=== PATIENT | male | born 1960 | race Caucasian/White ===

== ENCOUNTER 2017-05-24 05:27 | Inpatient (IN) | payer OTHER ==
[2017-05-11 17:11] VITALS: BMI 26.7
--- NOTE | 2017-05-24 11:47 | HP ---
History & Physical Update - History History: No Change - Physical Physical: No Change - Assessment Assessment: No Change - Plan Plan: No Change
[2017-05-24] MEDS ORDERED: MIDAZOLAM HCL 2 MG/2 ML SINGLE DOSE VIAL ONE (12:04)
[2017-05-24] MEDS ORDERED: PROPOFOL 20 ML ONE ×14 (12:05→15:45)
[2017-05-24] MEDS ORDERED: ROCURONIUM BROMIDE 50 MG/5 ML VIAL ONE (12:06)
[2017-05-24] MEDS ORDERED: SUCCINYLCHOLINE CHLORIDE 200 MG/10 ML VIAL ONE (12:06)
[2017-05-24] MEDS ORDERED: ceFAZolin SODIUM 1 GM VIAL IVPB ONE (12:31)
[2017-05-24] MEDS ORDERED: ONDANSETRON 4 MG/2 ML VIAL ONE (12:51)
[2017-05-24] MEDS ORDERED: ceFAZolin SODIUM 1 GM VIAL ONE ×2 (12:51→21:39)
[2017-05-24] MEDS ORDERED: DEXAMETHASONE SOD PHOSPHATE 4 MG/1 ML VIAL ONE (12:51)
[2017-05-24] MEDS ORDERED: THROMBIN (BOVINE) 5,000 UNIT VIAL TP ONE (13:34)
[2017-05-24] MEDS ORDERED: BACITRACIN 50,000 UNITS VIAL NR ONE (13:34)
[2017-05-24] MEDS ORDERED: PROMETHAZINE HCL 25 MG/1 ML VIAL IVPB PRN (14:46)
[2017-05-24] MEDS ORDERED: DEXAMETHASONE SOD PHOSPHATE 4 MG/1 ML VIAL IVPUSH PRN (14:46)
[2017-05-24] MEDS ORDERED: ONDANSETRON 4 MG/2 ML VIAL IVPUSH PRN ×2 (14:46)
[2017-05-24] MEDS ORDERED: PROMETHAZINE HCL 25 MG/1 ML VIAL IVPUSH PRN (14:46)
[2017-05-24] MEDS ORDERED: HYDROmorphone *PCA* 10MG/50ML DISP.SYRIN PCA SCH (15:00)
[2017-05-24] MEDS ORDERED: METOPROLOL TARTRATE 5 MG/5 ML VIAL ONE (15:54)
[2017-05-24] MEDS ORDERED: D5-1/2NS+20 MEQ KCL - 1,000 ML IV SCH (16:00)
--- NOTE | 2017-05-24 16:00 | OP ---
Operative Note - Note: Operative Date: 05/24/17 Pre-Operative Diagnosis: C5-6 and C6-7 HNP with R > L radiculopathy Operation: Traction tongs; anterior cervical discectomies C5-6 and C6-7; partial corpectomies C5,6,7 for decompression; anterior interbody fusion C5-6 and C6-7; interbody implants C5-6 and C6-7; anterior instrumentation C5-6-7 ; microdissection Findings: Severe DDD C6-7 and moderate DDD C5-6 with bridging osteophytes and uncovertebral joint hypertrophy and foramenal stenosis; sensitive B C6 and C67 roots; central stenosis; stable SSEP and MEP; occ EMG activities Implants: 7 mm Bajadero lordotic implants (C5-6 and C6-7); 42 mm [employer] Select plate and 16 mm screws Surgeon: Kenneth Christiansen Electrical And Instrument Technician: Brannon Owens Anesthesiologist/COAL TRAM DRIVER: Katia Shaw MD Anesthesia: General Specimens Removed: C5-6 and C6-7 DDD Estimated Blood Loss (mls): 25
[2017-05-24] MEDS ORDERED: BACITRACIN 15 GM TUBE TOPICAL OINTMENT ONE (16:17)
--- NOTE | 2017-05-24 16:20 | PN ---
Progress Note (short form) - Note Progress Note: NEUROSURGERY Pt in PACU AF, VSS O2 sat 100% PE: CV- RRR; Lungs: CTA; Abd-benign; Ext- no sign of DVT CN- intact; Motor 4/5 B UE/LE at least; Sensation- intact to LT Dressing C/D/I Intra-op findings d/w family All questions answered
[2017-05-24] MEDS ORDERED: HYDROmorphone *PCA* 10MG/50ML DISP.SYRIN PCA ONE (16:25)
[2017-05-24] MEDS: diazePAM 5 MG TABLET PO SCH (18:39)
[2017-05-24] MEDS: CEFAZOLIN 1 GM in DEXTROSE 5%-WATER - 50 ML IVPB SCH (20:30)
[2017-05-24] MEDS ORDERED: DEXTROSE 5%-WATER - 50 ML IVPB ONE (21:39)
[2017-05-24] MEDS: DOCUSATE SODIUM 100 MG CAPSULE (FP) PO SCH (21:53)
[2017-05-25] MEDS: diazePAM 5 MG TABLET PO SCH ×4 (01:00→21:43)
[2017-05-25] MEDS: CEFAZOLIN 1 GM in DEXTROSE 5%-WATER - 50 ML IVPB SCH (01:14)
[2017-05-25] MEDS: DOCUSATE SODIUM 100 MG CAPSULE (FP) PO SCH ×3 (06:25→21:42)
--- NOTE | 2017-05-25 08:06 | PN ---
Progress Note (short form) - Note Progress Note: NEUROSURGERY POD #1 Mild incisional pain Mild sore throat R deltoid area pain better AF, VSS PE: CV- RRR; Lungs: CTA; Abd-benign; Ext- no sign of DVT CN- intact; Motor 4+/5 B UE/LE at least; Sensation- intact to LT Dressing C/D/I- changed C spine x-rays today OOB/PT Adv diet Intra-op findings d/w pt All questions answered
[2017-05-25] MEDS: VALSARTAN 160 MG TABLET (UD) PO SCH (09:48)
--- NOTE | 2017-05-25 12:28 | PN ---
Progress Note (short form) - Note Progress Note: Anesthesia POD#1 S/P ANTERIOR CERVICAL DECOMPRESSION and Fusion. Doing well. VSS.Pain is under control.Food ia advanced. Agree to discontinue the OVERLAY PLASTICIAN. Oral pain meds written. Neida Patel MD
[2017-05-25] MEDS: oxyCODONE HCL 5 MG TABLET PO PRN ×2 (16:16→21:44)
[2017-05-25] MEDS: ACETAMINOPHEN 325 MG TABLET (FP) PO PRN ×2 (16:17→21:44)
--- NOTE | 2017-05-25 16:27 | OP ---
DATE OF OPERATION: 05/24/2017 PREOPERATIVE DIAGNOSES: 1. C5-6 and C6-7 disk herniation and degenerative disk disease with spinal stenosis and cervical radiculopathy, right greater than left. 2. Hypertension. POSTOPERATIVE DIAGNOSES: 1. C5-6 and C6-7 disk herniation and degenerative disk disease with spinal stenosis and cervical radiculopathy, right greater than left. 2. Hypertension. ATTENDING SURGEON: Kenneth Christiansen MD ROBOTICS SOFTWARE ENGINEER: RODERICK Tapia ANESTHESIA: General endotracheal. ANESTHESIOLOGIST: Katia Shaw MD ESTIMATED BLOOD LOSS: 25 mL. PROCEDURES: 1. Preoperative placement and postoperative removal of cranial traction tongs for intraoperative traction (58579). 2. Anterior cervical diskectomy, C5-6 and C6-7. 3. Partial corpectomy, C5, C6, and C7 for spinal cord cervical root decompression at C5-6 and C6-7 (25332, 94515, ad 08030). 4. Microsurgical dissection with the operative microscope and microsurgical techniques (70355). 5. Anterior cervical interbody fusion, C5-6 and C6-7 (63272, 84343). 6. Utilization of intervertebral lordotic bony prosthetic device at C5-6 and C6 -7 from [employer] (74392, 13269-46). 7. Anterior cervical instrumentation, C5 to C7, with [employer] Trinica Select 42-mm titanium plate and 14-mm screws for C5, C6, and C7 (51601). FINDINGS: 1. Severe degenerative disk space narrowing at C6-7 greater than C5-6 with bridging osteophytes. 2. Spinal stenosis. 3. Sensitive bilateral cervical roots at C5-6 and C6-7. INDICATIONS: The patient is a 57-year-old male with history of intractable neck pain and cervical radiculopathy. He had undergone MRI demonstrating degenerative disk disease at C6-7 greater than C5-6, with neurologic element impingement. He also has weakness and paresthesia of his right arm, in addition to atrophy and abnormal EMG. Because of the above findings, he was consented for anterior cervical decompression and fusion with instrumentation. Intraoperative SSEP, EMG, and MEP signals were monitored. The risks of surgery include but are not limited to bleeding, infection, dural tear with CSF leak, neurological injury, increased thromboembolic risks, and other risks of general anesthesia. The patient understands the indications for the procedure, procedure in detail, risks and benefits, and alternatives for treatment of his cervical spine condition and wished to proceed. No guarantees given for a favorable outcome. PROCEDURE IN DETAIL: After the patient was taken to the operating room, he was placed in supine position. After general anesthesia was induced and appropriate monitoring lines were placed, a pillow was placed below his knees. The shoulders were taped down the side, and the head was secured in a Gandhi horseshoe in the neutral position. Anterior cervical region was cleaned with alcohol and prepped with Betadine. A localizing x-ray was obtained with spinal needle in place. An approximately 1-3/4-inch incision was opened on the left side just near the cricoid bone. This was done after the patient was sterilely prepped and draped. The skin was undermined with Metzenbaum scissors. The dissection then proceeded medially to the carotid sheath and lateral to the trachea and the esophagus. The prevertebral fascia was dissected free. The omohyoid muscle was retracted medially. The longus coli muscle reflected laterally. Large bridging anterior osteophytes were noted at C6-7 greater than C5-6. A self-retaining radiolucent retractor system was inserted at this time. A spinal needle was inserted into the C5-6 and C6-7 and localizing x-ray was taken, verifying the exposure to be C5-6 and C6-7. At this point, the disk annulus was incised with a number 15 blade after bridging anterior osteophytes were resected with Leksell rongeur. The disk material was removed at C5-6 and C6-7 with a combination of angled curette and straight curette, pituitary rongeur, and Kerrison rongeur. A microscope was used for this portion of the procedure for both illumination and magnification. Microsurgical techniques were utilized. Partial corpectomies of the bottom of the vertebral body of C5, top and bottom of vertebral body of C6, and top of vertebral body of C7 were carried out with high-speed pneumatic drill, angled curette, and Kerrison rongeur. This was necessary because of the significantly collapsed disc space height at C6-7 and C5-6. The posterior longitudinal ligament was calcified, and it was disarticulated with angled curette and resected with Kerrison rongeur. Bilateral foraminotomy was carried out at C5-6 and C6-7 with angled curette and Kerrison rongeur similarly. The nerve root was quite sensitive to nearby mechanical stimulation or bipolar electrocautery stimulation at both levels bilaterally. After decompression was completed, the traction weight was slowly increased, first from 5 and then 10 pounds. The AP diameter of the vertebral body was found to be approximately 17-18 mm, and vertical heights were 7 mm both. A 7-mm bony lordotic prosthetic device from [employer] was inserted and countersunk by about 4-5 mm at C6-7. This was to gain the maximal height in the disk space to indirectly decompress the neural foramen. Another 7mm interbody implant was placed at C6-7. Interbody fusion was thus achieved at both C5-6 and C6-7. Epidural hemostasis had been obtained with bipolar electrocautery and thrombin-filled powder and Gelfoam. A 42-mm Trinica titanium plate from [employer] was secured with fixation pins, and screw holes were drilled with hand- held guide, and 16-mm variable-angle screws were used at C5 and C6 and 16-mm fixed-angle screws were used at C7 bilaterally. The wound was thoroughly irrigated with antibiotic- containing irrigation. A final lateral cervical spine x-ray demonstrated satisfactory position of the implant. SSEP, EMG, and MEP signals remained stable throughout. At this point, the wound was once again irrigated, and the carotid sheath and esophagus were both inspected. They were both felt to be in good condition. A piece of Surgicel was laid on top of the plating system after the locking mechanism was engaged. Another piece of Surgicel was layered in the dissection track. The platysmal muscle was closed with 3-0 Vicryl suture, the subcutaneous fascia was closed with 3-0 Vicryl suture. Skin was closed with 4-0 Vicryl running subcuticular suture. Steri- Strips and a sterile occlusive dressing were applied. The patient tolerated the procedure well, extubated in the operating room, and moving bilateral upper and lower extremities. All needle and lap counts were correct. The patient received 1 dose of 1 g of Ancef and 10 mg dexamethasone prior to the incision. The OR timeout procedure was followed. The patient as well as the patient's family was updated as to the intraoperative findings. KENNETH CHRISTIANSEN M.D. CATHRYN/[id number] MTDD
[2017-05-26] MEDS: diazePAM 5 MG TABLET PO SCH (06:24)
[2017-05-26] MEDS: DOCUSATE SODIUM 100 MG CAPSULE (FP) PO SCH (06:24)
--- NOTE | 2017-05-26 08:48 | PN ---
Progress Note (short form) - Note Progress Note: NEUROSURGERY POD #2 Mild incisional pain Mild sore throat R deltoid/biceps area pain better AF, VSS PE: CV- RRR; Lungs: CTA; Abd-benign; Ext- no sign of DVT CN- intact; Motor 4+-5/5 B UE/LE at least; Sensation- intact to LT Dressing C/D/I C spine x-rays- satisfactory position of implants; post-op changes OOB/PT Reg diet Intra-op findings d/w pt D/c plans/instructions and f/u d/w pt All questions answered
[2017-05-26] MEDS: VALSARTAN 160 MG TABLET (UD) PO SCH (09:34)
[2017-05-26 10:18] VITALS: BP 137/69; PULSE 91; TEMP 98.2
--- NOTE | 2017-05-26 14:07 | PATH ---
Surgical Pathology Report Patient Name: LINNEA VARGAS Med. Rec. #: [id number] /Age/Gender: 1960 (Age: 57) / M Account: [id number] Location: [facility] MED/SURG Taken: 05/25/2017 Received: 05/25/2017 Reported: 05/26/2017 Physicians: Kenneth Christiansen M.D. Specimen(s) Received C5.6,7 DISC Clinical History Cervical disc displacement C5-C7 Final Diagnosis INTERVERTEBRAL DISC, C5, C6, C7, ANTERIOR CERVICAL LAMINECTOMY WITH DECOMPRESSION AND FUSION: FRAGMENTS OF CARTILAGE WITH DEGENERATIVE CHANGES. Electronically Signed Markos Whitman M.D. Gross Description Received in formalin labeled "C5, 6, 7 disc" is a 3.0 x 2.2 x 0.3 cm aggregate of franco fragments of fibrocartilaginous tissue. A sales representative rural power portion is submitted in one cassette. /05/25/201705/25/2017
== END 2017-05-26 10:26 | disposition home or self-care (01) | DRG 23 ==
LOC: JSAMEDAYSX 05:27 → J8W 18:00
PROVIDERS: ADMIT Neurological Surgery; ATTEND Neurological Surgery
PROC: 0RG20K0 Fusion of 2 or more Cervical Vertebral Joints with Nonautologous Tissue Substitute, Anterior Approach, Anterior Column, Open Approach (ICD-10-PCS; 2017-05-24)
PROC: 0RG20A0 Fusion of 2 or more Cervical Vertebral Joints with Interbody Fusion Device, Anterior Approach, Anterior Column, Open Approach (ICD-10-PCS; principal; 2017-05-24 12:00)
DX: M50.123 Cervical disc disorder at C6-C7 level with radiculopathy (principal); M50.122 Cervical disc disorder at C5-C6 level with radiculopathy; M48.02 Spinal stenosis, cervical region; I10 Essential (primary) hypertension
CPT/HCPCS: 72050-TC; 86850; 86900; 86901; 88304-TC; 94010; 94760; 97116-GP; 97161-GP

== ENCOUNTER 2022-11-18 04:03 | Inpatient (IN) | payer OTHER ==
[2022-11-16 11:12] VITALS: BMI 26.6
[~2022-11-18 04:03] MED LIST: BUPIVACAINE HCL/PF 0.5% (5MG/ML) 10 ML VIAL IJ ONE; THROMBIN (BOVINE) 5,000 UNIT VIAL TP ONE; VANCOMYCIN 1 GM in NS (PRE-DOCKED) 1,000 MG/250 ML IVPB ONE; methylPREDNISolone ACET (DEPO) 80 MG/1 ML VIAL IM ONE
[2022-11-18] MEDS ORDERED: VANCOMYCIN 1,000 MG VIAL (RESTRICTED TO ID ONLY) ONE (07:09)
[2022-11-18] MEDS ORDERED: BUPIVACAINE HCL/PF 0.5% (5MG/ML) 10 ML VIAL ONE (07:10)
[2022-11-18] MEDS ORDERED: BACITRACIN ZINC 15 GM TUBE TOPICAL OINTMENT ONE ×2 (07:10→08:01)
[2022-11-18] MEDS ORDERED: THROMBIN (BOVINE) 5,000 UNIT VIAL TP ONE ×2 (07:10→08:40)
[2022-11-18] MEDS ORDERED: methylPREDNISolone ACET (DEPO) 80 MG/1 ML VIAL ONE (07:10)
[2022-11-18] MEDS ORDERED: ceFAZolin SODIUM 1 GM VIAL ONE ×2 (07:37→09:44)
[2022-11-18] MEDS ORDERED: PROPOFOL 120 ML ONE (07:38)
[2022-11-18] MEDS ORDERED: MIDAZOLAM HCL 2 MG/2 ML SINGLE DOSE VIAL ONE (07:39)
[2022-11-18] MEDS ORDERED: ROCURONIUM BROMIDE 50 MG/5 ML SYRINGE ONE (07:42)
[2022-11-18] MEDS ORDERED: SUCCINYLCHOLINE CHLORIDE 200 MG/10 ML SYRINGE ONE (07:42)
[2022-11-18] MEDS ORDERED: ceFAZolin SODIUM 1 GM VIAL IVPB ONE (08:02)
[2022-11-18] MEDS ORDERED: BENZOIN/ALOE VERA/STORAX/TOLU 58 ML BOTTLE ONE (08:08)
[2022-11-18] MEDS ORDERED: DEXAMETHASONE SOD PHOSPHATE 4 MG/1 ML VIAL ONE (08:30)
[2022-11-18] MEDS ORDERED: ONDANSETRON 4 MG/2 ML VIAL ONE (08:30)
[2022-11-18] MEDS ORDERED: PROPOFOL 80 ML ONE (08:31)
[2022-11-18] MEDS ORDERED: VANCOMYCIN 1 GM in NS (PRE-DOCKED) 1,000 MG/250 ML IVPB ONE (08:41)
[2022-11-18] MEDS ORDERED: LIDOCAINE HCL/PF 2% SDV 5ML VIAL ONE (09:43)
[2022-11-18] MEDS ORDERED: ONDANSETRON 4 MG/2 ML VIAL IVPUSH PRN ×2 (10:34→10:37)
[2022-11-18] MEDS ORDERED: ACETAMINOPHEN 1000 MG/100 ML BAG IVPB PRN (10:35)
[2022-11-18] MEDS ORDERED: oxyCODONE HCL 5 MG TABLET PO PRN (10:37)
[2022-11-18] MEDS ORDERED: LACTATED RINGERS SOLUTION 1,000 ML IV SCH (10:45)
[2022-11-18] MEDS ORDERED: D5-1/2NS+20 MEQ KCL - 20 MEQ/1,000 ML INFUS.BAG IV SCH (10:45)
[2022-11-18] MEDS ORDERED: HYDROmorphone HCl 2 MG/ML VIAL IVPB PRN (10:49)
[2022-11-18] MEDS: diazePAM 5 MG TABLET PO SCH ×2 (10:50→17:50)
[2022-11-18] MEDS: DOCUSATE SODIUM 100 MG CAPSULE (FP) PO SCH ×2 (15:54→22:17)
[2022-11-18] MEDS: CEFAZOLIN 1 GM in DEXTROSE 5%-WATER 100 ML IVPB SCH (17:53)
[2022-11-18] MEDS ORDERED: ATORVASTATIN CA 10 MG TABLET (FP) PO SCH (22:00)
[2022-11-18] MEDS ORDERED: LOSARTAN POTASSIUM 50 MG TABLET PO SCH (22:00)
[2022-11-19] MEDS: diazePAM 5 MG TABLET PO SCH ×2 (02:16→10:06)
[2022-11-19] MEDS: CEFAZOLIN 1 GM in DEXTROSE 5%-WATER 100 ML IVPB SCH (02:16)
[2022-11-19] MEDS: DOCUSATE SODIUM 100 MG CAPSULE (FP) PO SCH (07:15)
[2022-11-19] MEDS ORDERED: PARoxetine HCL 20 MG TABLET PO SCH (10:00)
[2022-11-19] MEDS ORDERED: DEXAMETHASONE SOD PHOSPHATE 4 MG/1 ML VIAL IVPUSH ONE (10:54)
[2022-11-19 14:27] VITALS: BP 125/74; PULSE 79; RESP 18; TEMP 97.9
== END 2022-11-19 15:37 | disposition home or self-care (01) | DRG 473 ==
LOC: J2C 04:03 → J8W 16:44
PROVIDERS: ADMIT Neurological Surgery; ATTEND Neurological Surgery
PROC: 0RB30ZZ Excision of Cervical Vertebral Disc, Open Approach (ICD-10-PCS; 2022-11-18)
PROC: 01N10ZZ Release Cervical Nerve, Open Approach (ICD-10-PCS; 2022-11-18)
PROC: 0RP104Z Removal of Internal Fixation Device from Cervical Vertebral Joint, Open Approach (ICD-10-PCS; 2022-11-18)
PROC: 4A11X4G Monitoring of Peripheral Nervous Electrical Activity, Intraoperative, External Approach (ICD-10-PCS; 2022-11-18)
PROC: 0RG10A0 Fusion of Cervical Vertebral Joint with Interbody Fusion Device, Anterior Approach, Anterior Column, Open Approach (ICD-10-PCS; principal; 2022-11-18 07:30)
DX: M50.121 Cervical disc disorder at C4-C5 level with radiculopathy (principal); M48.02 Spinal stenosis, cervical region; I10 Essential (primary) hypertension
CPT/HCPCS: 72050-TC-FY; 88300-TC; 88304-TC; 94010; 94760; 97116-GP; 97161-GP; C1713